=== PATIENT | female | born 1950 | race Caucasian/White ===

== ENCOUNTER 2017-03-20 12:25 | Inpatient (IN) | payer OTHER, MEDICARE ==
[~2017-03-20] VITALS: Ht 167.6 cm; Wt 76.0 kg
--- NOTE | ~2017-03-20 | 2DMMODE ---
[facility] [address] [place] [address] 2 D/M-MODE ECHOCARDIOGRAM Name: PRABHAKARANALILIA Room #: 436-P [facility] IN M.R.#: [id number] Admission: 03/20/17 Attend Phys: Chacorta Tejada, Discharge: Date of : 50 Date of Service: 03/21/17 1454 Report #: [id number] THIS REPORT FOR: //name// APPROVED REPORT Study performed: 03/21/2017 11:27:22 EXAM: Comprehensive 2D, Doppler, and color-flow Echocardiogram Patient Location: Echo lab Room #: 436 Status: routine Other Information Study Quality: Adequate Technically limited study due to lung artifact. Indications Pacemaker, syncope 2D Dimensions RVDd: 34.77 mm LVEF(%): 74.55 (>50%) IVSd: 9.29 (7-11mm) LVOT Diam: 20.95 (18-24mm) LVDd: 40.54 mm PWd: 10.14 (7-11mm) Ascending Ao: 32.01 (22-36mm) LVDs: 23.13 (25-40mm) Aortic Root: 31.00 mm De Dios's LVEF: 74.55 % Volumes Left Atrial Volume (Systole) Single Plane 4CH: 18.53 mL Single Plane 2CH: 23.23 mL LA ESV Index: 12.00 mL/m2 Aortic Valve AoV Peak Tavon.: 1.13 m/s AO Peak Gr.: 5.12 mmHg LVOT Max P.08 mmHg LVOT Max V: 0.88 m/s CHRIS Vmax: 2.67 cm2 Mitral Valve E/A Ratio: 0.9 MV Decel. Time: 281.80 ms MV E Max Tavon.: 0.78 m/s MV A Tavon.: 0.89 m/s [facility] [address] [place] [address] 2 D/M-MODE ECHOCARDIOGRAM Name: ANALILIA PRABHAKAR Room #: 436-P [facility] IN ..#: [id number] Admission: 03/20/17 Attend Phys: Chacorta Tejada, Discharge: Date of : 50 Date of Service: 03/21/17 1454 Report #: [id number] MV PHT: 81.72 ms IVRT: 69.20 ms Pulmonary Valve PV Peak Tavon.: 0.81 m/s PV Peak Gr.: 2.60 mmHg Pulmonary Vein P Vein S: 0.57 m/s P Vein D: 0.34 m/s P Vein S/D Ratio: 1.68 Tricuspid Valve TR Peak Tavon.: 2.68 m/s RAP Estimate: 5.00 mmHg TR Peak Gr.: 28.70 mmHg PA Pressure: 34.00 mmHg Left Ventricle The left ventricle is normal size. There is normal LV segmental wall motion. There is normal left ventricular wall thickness. Left ventricular systolic function is normal. LVEF is 60-65%. Grade I - abnormal relaxation pattern. Right Ventricle The right ventricle is normal size. The right ventricular systolic function is normal. Pacemaker lead is present in the right ventricle. Atria The left atrium size is normal. The right atrium size is normal. Aortic Valve Aortic valve is mildly calcified. No aortic regurgitation is present. There is no aortic valvular stenosis. Mitral Valve The mitral valve is normal in structure. Trace mitral regurgitation. No evidence of mitral valve stenosis. Tricuspid Valve The tricuspid valve is normal in structure. There is moderate tricuspid regurgitation. The right atrial pressure is estimated at 5 mmHg. There is mild pulmonary hypertension with an estimated PAP of 34mmHg. Pulmonic Valve The pulmonary valve is normal in structure. Mild pulmonic [facility] [address] [place] [address] 2 D/M-MODE ECHOCARDIOGRAM Name: ANALILIA PRABHAKAR BRAD Room #: 436-P [facility] IN ..#: [id number] Admission: 03/20/17 Attend Phys: Chacorta Tejada, Discharge: Date of : 50 Date of Service: 03/21/17 1454 Report #: [id number] regurgitation. Great Vessels The aortic root is normal in size. IVC is normal in size and collapses >50% with inspiration. Pericardium There is no pericardial effusion. <Conclusion> LVEF is 60-65%. Grade I - abnormal relaxation pattern. Aortic valve is mildly calcified. There is no aortic valvular stenosis. No aortic regurgitation is present. Trace mitral regurgitation. There is moderate tricuspid regurgitation. The right atrial pressure is estimated at 5 mmHg. There is mild pulmonary hypertension with an estimated PAP of 34mmHg. Mild pulmonic regurgitation. <ELECTRONICALLY SIGNED> By: Magdalena Blankenship MD, FACC 03/21/17 1454 1454 1454 Magdalena Blankenship MD, FACC /INF
--- NOTE | ~2017-03-20 | EKG ---
[address] [place] [address] ELECTROCARDIOGRAM REPORT Name: RAVIN PRABHAKARNY BRAD Room #: 436-P ADM IN M.R.#: [id number] Admission: 03/20/17 Attend Phys: Chacorta Tejada DO Discharge: Date of : 50 Report #: [id number] THIS REPORT FOR: //name// [facility] ED Test Date: 2017-03-20 Test Time: 13:07:01 Pat Name: ANALILIA PRABHAKAR Department: Room: [facility] Gender: F Air Chipper: santosh : 1950 Requested By: Pierce Boucher Order Number: [id number] MD: Guillermo Peterson Measurements Intervals [place] Rate: 68 P: 58 OR: 174 QRS: 14 QRSD: 89 T: 20 QT: 451 QTc: 480 Interpretive Statements Sinus rhythm No significant abnormality No previous ECG available for comparison Electronically Signed On 03-21-2017 7:53:21 CDT by Guillermo Peterson [email or web address] <ELECTRONICALLY SIGNED> By: Guillermo Peterson MD, [facility] 03/21/17 0753 [id number] 1307 Guillermo Peterson MD, FACC /EPI
--- NOTE | ~2017-03-20 | HC ---
[facility] [place] [address] [place] [address] CONSULTATION Name: ANALILIA PRABHAKAR Room #: 436-P [facility] IN M.R.#: [id number] Admission: 03/20/17 Attend Phys: Chacorta Tejada DO Discharge: Date of : 50 Report #: [id number] THIS REPORT FOR: //name// CC: Chacorta Tejada Alexis Viveros DATE OF SERVICE: 03/21/2017 REASON FOR CONSULTATION: Syncope. HISTORY OF PRESENT ILLNESS: The patient is a 66-year-old female who has had 2 falls over the last several weeks, most recently fracturing the left wrist. 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 She presented to the emergency room with stable vital signs and her blood pressure and heart rate remained stable. She does have permanent pacemaker, interrogation is pending, but telemetry readings do not show any evidence of tachy-arrhythmias. She denies chest pain or shortness of breath. She denies palpitations. She denies neuro symptoms of slurred speech, weakness, seizures, etc. Carotid Dopplers were performed, which demonstrate mild bilateral plaquing without significant stenosis and there is bilateral antegrade flow in the vertebral arteries. PAST MEDICAL HISTORY: Significant for vasomotor instability. She has been treated with current medications of Florinef. Permanent pacemaker, details of implant are not available at this time. She has a history of sick sinus syndrome. She has a history of Alzheimer's disease. PAST SURGICAL HISTORY: Prior , lumbar fusion. HOME MEDICATIONS: Namenda 10 mg daily, Florinef 0.1 mg 3 days per week and Aricept 10 mg p.o. b.i.d. and vitamin 12. ALLERGIES: He has allergies to PENICILLIN. SOCIAL HISTORY: She is a nonsmoker. REVIEW OF SYSTEMS: GENERAL: No fevers or chills. RESPIRATORY: Denies cough, shortness of breath. CARDIOVASCULAR: No chest pain. No palpitation, no edema. [facility] [address] [place] [address] CONSULTATION Name: ANALILIA PRABHAKAR BRAD Room #: [facility] IN M.R.#: [id number] Admission: 03/20/17 Attend Phys: Chacorta Tejada DO Discharge: Date of : 50 Report #: [id number] GENITOURINARY: No dysuria or hematuria. NEUROLOGIC: Denies slurred speech, visual changes or facial numbness, weakness or seizures. EYES: Denies any blurred vision or loss of vision. HEMATOLOGIC: No anemia. PHYSICAL EXAMINATION: VITAL SIGNS: Blood pressure on presentation was 101/49. I do not see any orthostatics. Her weight 180 pounds. Pulse ox is 99, pulse of 60. Presently, she is in a sinus rhythm, telemetry review shows no evidence of tachy-arrhythmias. GENERAL: Pleasant elderly female. She is alert, in no apparent distress. HEENT: Eyes: EOMs intact. No facial asymmetry. NECK: Supple. No jugular venous distention. CARDIOVASCULAR: Regular. I cannot hear a murmur. SKIN: Bruise over left shoulder and a cast on her left wrist. NEUROLOGIC: There are no focal deficits. SKIN: Warm and dry. There is no edema. IMAGING: CT of the brain shows no acute intracranial process, interval progression of atrophy with moderate diffuse ventricular prominence. LABORATORY DATA: Hemoglobin is 11.4. Sodium is 148, potassium 3.8, chloride is 111, BUN is 10, creatinine is 0.7, glucose 114. IMPRESSION: 1. Syncope. I think this is multifactorial, but predominance of vasomotor instability and I would like to interrogate her pacemaker and then also start her on midodrine unless she has had an allergy. She is not presently on the therapy. We may need to increase her Florinef to daily usage. 2. Sick sinus syndrome, status post permanent pacemaker implantation. We will have device interrogated. 3. Alzheimer's disease. By: [id number] Praveen Medrano MD, FACC /nt
--- NOTE | ~2017-03-20 | HC ---
[facility] [address] [place] [address] CONSULTATION Name: ANALILIA PRABHAKAR Room #: 429-P ADM IN M.R.#: [id number] Admission: 03/20/17 Attend Phys: Chacorta Tejada DO Discharge: Date of : 50 Report #: [id number] THIS REPORT FOR: //name// CC: Chacorta Goodmanisrrael Viveros CHIEF COMPLAINT: Left hand pain. HISTORY OF PRESENT ILLNESS: The patient is a pleasant 66-year-old female who was admitted to [facility] yesterday for syncopal episodes. The patient and her yelffspr-lh-ssf report that she had an episode yesterday where she started to fall, but this was witnessed and she was caught before she felt to the ground. However, she had an unwitnessed fall about a week ago, where she fell and hit her left hand, shoulder and knee. She noticed bruising in all three of these areas. However, her hand continued to bother her and she had x-rays performed last week that were negative for her wrist fracture. X-rays performed yesterday at [facility] were positive for fourth and fifth proximal phalanx fractures of the left hand. The patient reports that she normally ambulates without assistance. Her eztrgvil-uo-xjd is at bedside today. ALLERGIES: PENICILLIN. MEDICATIONS: Memantine, fludrocortisone, donepezil, cyanocobalamin. PAST SURGICAL HISTORY: Significant for an L4-L5 fusion, pacemaker placement on 03/07/2016 and . PAST MEDICAL HISTORY: Significant for low back pain, sick sinus syndrome, depression, Alzheimer's dementia. SOCIAL HISTORY: The patient denies any tobacco, alcohol or recreational drug use. She lives with others. PHYSICAL EXAMINATION: GENERAL: The patient is awake and alert, in no acute distress. VITAL SIGNS: Temperature 36.8 degrees Celsius, blood pressure 118/71, pulse rate 66, bedside pulse oximetry 95% on room air. EXTREMITIES: Left upper extremity is splinted in a short ulnar gutter, this was removed, left upper extremity is neurovascularly intact. Mild edema noted in the left hand. Tenderness to palpation of the fourth and fifth proximal phalanges. No tenderness to palpation of the fourth and fifth metacarpals, to the phalanges. No tenderness to palpation of the rest of the hand and wrist, mild, resolving ecchymosis is noted on the ulnar aspect of the left hand. Hand is neurovascularly intact. IMAGING REPORTS: Three views of the left hand shows a mildly impacted and ankle fractures involving the proximal portion of the fourth and fifth phalanges. [address] [address] CONSULTATION Name: ANALILIA PRABHAKAR Room #: 429-P [facility] IN M.R.#: [id number] Admission: 03/20/17 Attend Phys: Chacorta Tejada DO Discharge: Date of : 50 Report #: [id number] Angulation and impaction is most prominently involving the proximal phalanx of the fifth finger. IMPRESSION: Fourth and fifth proximal phalanx fractures of the left hand. PLAN: Discussed the patient's diagnosis and treatment options today including continued splinting versus operative intervention consisting of close reduction and possible percutaneous pinning. We reviewed that she does have some angulation of the fifth finger fracture and this will likely heal on its own, but may heal with some deformity of the finger. The patient does not appear to have any rotation or deformity of the fifth finger at this point and the patient and her ctsjqzlp-wh-dvy would like to proceed with nonoperative splinting of the left hand at this point. We reviewed the need for followup radiographs in one week's time. We also reviewed that if further displacements are to occur with these, radiographs then operative intervention may be needed. We reviewed the length of splinting as well as activity restrictions. The patient and her yizppowm-wb-urz are comfortable proceeding in this matter. We will follow up with the patient in one weeks' time at our outpatient clinic. <ELECTRONICALLY SIGNED> By: JEFE Valdes 03/23/17 1013 [id number] 1117 JEFE Valdes /darren
[~2017-03-20 12:25] MED LIST: ARICEPT 5 MG TAB5 MG PO; FLORINEF ACETA0.1 MG PO; NAMENDA 10 MG T10 MG PO; VITAMIN D1000 UNI1 PO
[2017-03-20 12:26] VITALS: BP 101/49
[2017-03-20] MEDS ORDERED: VITAMIN B-121000 MC1 PO (13:12)
[2017-03-20 13:28] LABS: ABSOLUTE NEUTROPHILS 5.7 thou/uL (1.4-8.2); BASOPHILS 0.5 % (0.0-2.0); EOSINOPHILS 0.9 % (0.0-3.0); HEMATOCRIT 34.8 % (37.0-47.0); MANUAL DIFF NO; MCHC 34.4 g/dL (28.0-37.0); MCV 95.9 fL (80.0-100.0); MONOCYTES 5.9 % (1.0-8.0); PLATELET COUNT 175 thou/uL (150-400); POLYS 76.7 % (36.0-66.0); RBC 3.63 mil/uL (4.20-5.00); RDW 13.2 % (10.5-14.5); WBC 7.4 thou/uL (4.0-11.0)
[2017-03-20 13:36] LABS: ANION GAP 3 mmol/L (7-16); BUN 18 mg/dL (7-18); CALCIUM 8.5 mg/dL (8.5-10.1); CHLORIDE 109 mmol/L (98-107); CO2 32 mmol/L (21-32); CREATININE 0.7 mg/dL (0.6-1.0); GLUCOSE 142 mg/dL (74-106); POTASSIUM 3.7 mmol/L (3.5-5.1); SODIUM 144 mmol/L (136-145)
[2017-03-20 13:49] LABS: ALBUMIN 3.4 g/dL (3.4-5.0); ALKALINE PHOSPHATASE 71 U/L (46-116); NT-PRO BRAIN NAT PEPTIDE 100 pg/mL (<300); SGOT 25 U/L (15-37); SGPT 28 U/L (30-65); TOTAL BILIRUBIN 0.4 mg/dL (<0.1-1.0); TOTAL PROTEIN 6.4 g/dL (6.4-8.2); TROPONIN-I < 0.04 ng/mL (<0.04-0.07)
[2017-03-20 15:52] LABS: CHOLESTEROL 192 mg/dL (<200); HDL CHOLESTEROL 47 mg/dL (>40); LDL CHOLESTEROL 113 mg/dL (<100); TC:HDL 4.1 Ratio (Not establshd); TRIGLYCERIDE 164 mg/dL (<150); VLDL 33 mg/dL (<40)
[2017-03-20 16:03] VITALS: BP 117/71
[2017-03-20 16:07] LABS: SERUM ASSESSMENT Clear
[2017-03-20 16:19] VITALS: BP 125/69
[2017-03-20 16:51] VITALS: BP 135/65
[2017-03-20 22:12] VITALS: BP 113/56
[2017-03-21 05:46] VITALS: BP 119/77
[2017-03-21 07:00] LABS: ABSOLUTE NEUTROPHILS 4.4 thou/uL (1.4-8.2); BASOPHILS 0.9 % (0.0-2.0); EOSINOPHILS 2.5 % (0.0-3.0); HEMATOCRIT 33.4 % (37.0-47.0); HEMOGLOBIN 11.4 gm/dL (12.0-15.0); LYMPHOCYTES 24.2 % (24.0-44.0); MCHC 34.2 g/dL (28.0-37.0); MCV 96.5 fL (80.0-100.0); MONOCYTES 6.6 % (1.0-8.0); PLATELET COUNT 165 thou/uL (150-400); POLYS 65.8 % (36.0-66.0); RBC 3.47 mil/uL (4.20-5.00); RDW 13.2 % (10.5-14.5); WBC 6.7 thou/uL (4.0-11.0)
[2017-03-21 07:03] LABS: CALCIUM 8.3 mg/dL (8.5-10.1); CREATININE 0.7 mg/dL (0.6-1.0); POTASSIUM 3.8 mmol/L (3.5-5.1)
[2017-03-21 07:28] LABS: MANUAL DIFF NO
[2017-03-21 08:23] VITALS: BP 118/71
[2017-03-21 16:34] VITALS: BP 134/62
[2017-03-21 20:04] VITALS: BP 129/82
[2017-03-22 04:15] VITALS: BP 121/74
[2017-03-22 08:59] VITALS: BP 121/71
[2017-03-22 13:04] VITALS: BP 137/72
[2017-03-22 16:54] LABS: FOLIC ACID 13.8 ng/mL (8.6-58.9)
[2017-03-22 17:00] VITALS: BP 123/77
[2017-03-22 17:54] VITALS: BP 131/66
[2017-03-22 20:00] VITALS: BP 140/87
[2017-03-23 06:15] VITALS: BP 128/80
[2017-03-23 07:43] VITALS: BP 118/65
[2017-03-23] MEDS ORDERED: MIDODRINE HCL 55 M1 PO (08:52)
[2017-03-23 16:29] VITALS: BP 119/77; BP 123/81; BP 127/85
[2017-03-23 19:44] VITALS: BP 144/88
[2017-03-24 04:40] VITALS: BP 120/69
[2017-03-24 08:26] VITALS: BP 119/66
[2017-03-27 01:10] LABS: ALPHA TOCOPHEROL 12.7 mg/L (6.5-21.5)
== END 2017-03-24 10:30 | DRG 312 ==
LOC: ER 12:25 → EROBS 15:16 → 4E 15:16 → 4S 15:16 → 4E 03-21 18:25
PROVIDERS: Emergency Medicine; Family Medicine; Psychiatry & Neurology Neurology
PROC: 0X9K3ZZ Drainage of Left Hand, Percutaneous Approach (ICD-10-PCS; principal; 2017-03-20)
PROC: 2W3FX1Z Immobilization of Left Hand using Splint (ICD-10-PCS; 2017-03-20)
DX: R55 Syncope and collapse (principal); S62.613A Displaced fracture of proximal phalanx of left middle finger, initial encounter for closed fracture; I95.9 Hypotension, unspecified; F32.9 Major depressive disorder, single episode, unspecified; S62.102A Fracture of unspecified carpal bone, left wrist, initial encounter for closed fracture; I49.5 Sick sinus syndrome; G30.9 Alzheimer's disease, unspecified; F02.80 Dementia in other diseases classified elsewhere, unspecified severity, without behavioral disturbance, psychotic disturbance, mood disturbance, and anxiety; S62.615A Displaced fracture of proximal phalanx of left ring finger, initial encounter for closed fracture; W18.39XA Other fall on same level, initial encounter; Z95.0 Presence of cardiac pacemaker; Z79.899 Other long term (current) drug therapy; Z98.1 Arthrodesis status; Z88.0 Allergy status to penicillin; Y93.89 Activity, other specified; Y92.89 Other specified places as the place of occurrence of the external cause; Y99.8 Other external cause status
CPT/HCPCS: 10100; 10183